=== PATIENT | female | born 1990 | race American Indian/Alaskan Native ===

== ENCOUNTER 2016-11-16 19:28 | Emergency (ER) | payer OTHER ==
[2016-11-16 19:59] LABS: BASOPHIL 0.3 % (0-2.0); EOSINOPHIL 0.3 % (0-4.5); MCH 22.7 pg (25.7-33.7); MCHC 31.5 g/dl (32.0-36.0); MEAN CELL VOLUME 72.1 fl (80-96); MEAN PLT VOLUME 7.2 fl (7.5-11.1); NEUTROPHILS 72.7 % (42.8-82.8); PLATELET COUNT 323 K/MM3 (134-434); RDW 18.5 % (11.6-15.6); WHITE BLOOD COUNT 11.5 K/mm3 (4.0-10.0)
[2016-11-16 20:10] VITALS: BP 116/69; PULSE 81; TEMP 97.6; BMI 23.3
[2016-11-16 20:26] LABS: ALBUMIN 3.7 g/dl (3.4-5.0); ALK PHOS 86 U/L (45-117); ANION GAP 10 (8-16); BILIRUBIN,TOTAL 0.2 mg/dL (0.2-1.0); CALCIUM 9.6 mg/dL (8.5-10.1); CO2 24 mmol/L (21-32); CREATININE 0.5 mg/dL (0.55-1.02); GLUCOSE,RANDOM 112 mg/dL (74-106); SGOT/AST 27 U/L (15-37); SGPT/ALT 51 U/L (12-78); TOT PROT 7.6 g/dl (6.4-8.2)
[2016-11-16 20:32] LABS: URINE APPEARANCE CLEAR; URINE BILIRUBIN NEGATIVE (NEGATIVE); URINE COLOR YELLOW; URINE GLUCOSE (UA) NEGATIVE (NEGATIVE); URINE KETONE NEGATIVE (NEGATIVE); URINE LEUK ESTERASE NEGATIVE (NEGATIVE); URINE NITRITE NEGATIVE (NEGATIVE); URINE PROTEIN NEGATIVE (NEGATIVE); URINE UROBILINOGEN NEGATIVE E.U./dl (0.2-1.0)
[2016-11-16 20:33] LABS: URINE BLOOD 3+ (NEGATIVE)
--- NOTE | 2016-11-16 20:38 | PDOC ---
History of Present Illness - General History Source: Patient Exam Limitations: No Limitations - History of Present Illness Initial Comments: 11/16/16 20:39 The patient is a 26 year old female, 11 weeks () who presents to the ED with complaints of vaginal bleeding since earlier today. The patient a sudden onset of vaginal bleeding when she was cooking in the kitchen. The patient reports she went through 1 pad, and states her vaginal bleeding is heavy. The patient denies dysuria. The patient denies fevers or chills. Denies abdominal pain, nausea, vomiting, or diarrhea. Denies any other symptoms. FINANCE ASSISTANT: Dr. Garcia <Brando Reyna - Last Filed: 11/16/16 22:31> <Charity Thao - Last Filed: 11/16/16 23:09> - General Chief Complaint: Vaginal Bleeding Stated Complaint: VAGINAL BLEEDING 11WKS Time Seen by Provider: 11/16/16 19:37 Past History <Brando Reyna - Last Filed: 11/16/16 22:31> - Reproductive History Is Patient Now?: Yes (#): 1 Para: 0 Cervical CA: No Dysfunctional Uterine Bleeding: No Ectopic : No Endometrial CA: No Polycystic Ovaries: No Therapeutic (s) & number: No Tubal Ligation: No Spontaneous : 0 - Immunization History Immunization Up to Date: Yes - Psycho/Social/Smoking Cessation Hx Suicidal Ideation: No Smoking History: Never smoked Have you smoked in the past 12 months: No Information on smoking cessation initiated: No Hx Alcohol Use: No Drug/Substance Use Hx: No Substance Use Type: None <Charity Thao - Last Filed: 11/16/16 23:09> - Past Medical History Allergies/Adverse Reactions: Allergies Allergy/AdvReac Type Severity Reaction Status Date / Time No Known Allergies Allergy Verified 11/16/16 19:38 Home Medications: Ambulatory Orders Vits #93/Iron Fum/FA [ Formula Tablet] 1 each PO DAILY Review of Systems - Review of Systems Able to Perform ROS?: Yes Comments:: 11/16/16 20:39 CONSTITUTIONAL: Absent: fever, chills, diaphoresis, generalized weakness, malaise, loss of appetite HEENT: Absent: rhinorrhea, nasal congestion, throat pain, throat swelling, difficulty swallowing, mouth swelling, ear pain, eye pain, visual Changes CARDIOVASCULAR: Absent: chest pain, syncope, palpitations, irregular heart rate, lightheadedness , peripheral edema RESPIRATORY: Absent: cough, shortness of breath, dyspnea with exertion, orthopnea, wheezing, stridor, hemoptysis GASTROINTESTINAL: Absent: abdominal pain, abdominal distension, nausea, vomiting, diarrhea, constipation, melena, hematochezia GENITOURINARY: + vaginal bleeding Absent: dysuria, frequency, urgency, hesitancy, flank pain, genital pain MUSCULOSKELETAL: Absent: myalgia, arthralgia, joint swelling SKIN: Absent: rash, itching, pallor HEMATOLOGIC/IMMUNOLOGIC: Absent: easy bleeding, easy bruising, lymphadenopathy, frequent infections ENDOCRINE: Absent: unexplained weight gain, unexplained weight loss, heat intolerance, cold intolerance NEUROLOGIC: Absent: headache, focal weakness or paresthesias, dizziness, unsteady gait, seizure, mental status changes, bladder or bowel incontinence PSYCHIATRIC: Absent: anxiety, depression, suicidal or homicidal ideation, hallucinations. All Other Systems: Reviewed and Negative <Brando Reyna - Last Filed: 11/16/16 22:31> *Physical Exam - Vital Signs Last Vital Signs Temp Pulse Resp BP Pulse Ox 97.6 F 81 18 116/69 99 11/16/16 19:34 11/16/16 19:34 11/16/16 19:34 11/16/16 19:34 11/16/16 19:34 - Physical Exam Comments: 11/16/16 20:39 GENERAL: Well developed, well nourished. Awake and alert. No acute distress. HEENT: Normocephalic, atraumatic. PERRLA, EOMI. No conjunctival pallor. Sclera are non- icteric. Moist mucous membranes. Oropharynx is clear. NECK: Supple. Full ROM. No JVD. Carotid pulses 2+ and symmetric, without bruits. No thyromegaly. NCo lymphadenopathy. CARDIOVASCULAR: Regular rate and rhythm. No murmurs, rubs, or gallops. Distal pulses are 2+ and symmetric. PULMONARY: No evidence of respiratory distress. Lungs clear to auscultation bilaterally. No wheezing, rales or rhonchi. ABDOMINAL: Soft. Non-tender. Non-distended. No rebound or guarding. No organomegaly. Normoactive bowel sounds. VAGINAL: + Os is closed MUSCULOSKELETAL Normal range of motion at all joints. No bony deformities or tenderness. No CVA tenderness. EXTREMITIES: No cyanosis. No clubbing. No edema. No calf tenderness. SKIN: Warm and dry. Normal capillary refill. No rashes. No jaundice. NEUROLOGICAL: Alert, awake, appropriate. Cranial nerves 2-12 intact. No deficits to light touch and temperature in face, upper extremities and lower extremities. No motor deficits in the in face, upper extremities and lower extremities. Normoreflexic in the upper and lower extremities. Normal speech. Toes are down- going bilaterally. Gait is normal without ataxia. PSYCHIATRIC: Cooperative. Good eye contact. Appropriate mood and affect. <Brando Reyna - Last Filed: 11/16/16 22:31> - Vital Signs Last Vital Signs Temp Pulse Resp BP Pulse Ox 97.6 F 81 18 116/69 99 11/16/16 19:34 11/16/16 19:34 11/16/16 19:34 11/16/16 19:34 11/16/16 19:34 <Charity Thao - Last Filed: 11/16/16 23:09> ED Treatment Course - LABORATORY CBC & Chemistry Diagram: 11/16/16 19:45 11/16/16 19:45 - ADDITIONAL ORDERS Additional order review: Laboratory Results 11/16/16 11/16/16 20:20 19:45 Sodium 136 Potassium 3.9 Chloride 102 Carbon Dioxide 24 Anion Gap 10 BUN 7 Creatinine 0.5 L Creat Clearance w eGFR > 60 Random Glucose 112 H Calcium 9.6 Total Bilirubin 0.2 AST 27 ALT 51 Alkaline Phosphatase 86 Total Protein 7.6 Albumin 3.7 Urine Color Yellow Urine Appearance Clear Urine pH 5.0 Urine Protein Negative Urine Glucose (UA) Negative Urine Ketones Negative Urine Blood 3+ H Urine Nitrite Negative Urine Bilirubin Negative Urine Urobilinogen Negative Ur Leukocyte Esterase Negative 11/16/16 19:45 RBC 4.94 MCV 72.1 L MCHC 31.5 L RDW 18.5 H MPV 7.2 L Neutrophils % 72.7 Lymphocytes % 21.9 Monocytes % 4.8 Eosinophils % 0.3 Basophils % 0.3 <Brando Reyna - Last Filed: 11/16/16 22:31> - LABORATORY CBC & Chemistry Diagram: 11/16/16 19:45 11/16/16 19:45 - ADDITIONAL ORDERS Additional order review: Laboratory Results 11/16/16 11/16/16 20:20 19:45 Sodium 136 Potassium 3.9 Chloride 102 Carbon Dioxide 24 Anion Gap 10 BUN 7 Creatinine 0.5 L Creat Clearance w eGFR > 60 Random Glucose 112 H Calcium 9.6 Total Bilirubin 0.2 AST 27 ALT 51 Alkaline Phosphatase 86 Total Protein 7.6 Albumin 3.7 Urine Color Yellow Urine Appearance Clear Urine pH 5.0 Urine Protein Negative Urine Glucose (UA) Negative Urine Ketones Negative Urine Blood 3+ H Urine Nitrite Negative Urine Bilirubin Negative Urine Urobilinogen Negative Ur Leukocyte Esterase Negative 11/16/16 19:45 RBC 4.94 MCV 72.1 L MCHC 31.5 L RDW 18.5 H MPV 7.2 L Neutrophils % 72.7 Lymphocytes % 21.9 Monocytes % 4.8 Eosinophils % 0.3 Basophils % 0.3 - RADIOLOGY Radiology Studies Ordered: Category Date Time Status <14WKS US [US] Stat Ultrasound 11/16/16 19:37 Ordered <Charity Thao - Last Filed: 11/16/16 23:09> Medical Decision Making - Medical Decision Making 11/16/16 23:08 Pt comes with vag bleed in ; OS closed on exam. SOno is normal: Patient Name: Natasha Pires THIS IS A PRELIMINARY REPORT FROM [facility] IMAGES: 59 EXAM DATE AND TIME: 2016-11-16 20:44:11.0 EXAM: OB Ultrasound 14 wks single fetus AND DUPLEX SCAN PELVIS, COMPLETE Single live intrauterine Gestational age 10 weeks 4 days heart rate 129-137 bpm 1 cm corpus luteum left ovary No ovarian torsion bilaterally. Color flow with appropriate arterial waveforms. THIS DOCUMENT HAS BEEN ELECTRONICALLY SIGNED Pt has Apositive blood. SHe will be asked to follow with Dr. Heredia. Pt has normal Urinalysis. No infection <Charity Thao - Last Filed: 11/16/16 23:09> *DC/Admit/Observation/Transfer - Attestations Scribe Attestion: 11/16/16 20:39 Documentation prepared by Brando Reyna, acting as medical laboratory technologist for Charity Thao MD <Brando Reyna - Last Filed: 11/16/16 22:31> - Discharge Dispostion Admit: No <Charity Thao - Last Filed: 11/16/16 23:09> Diagnosis at time of Disposition: Threatened - Discharge Dispostion Disposition: HOME Condition at time of disposition: Stable - Patient Instructions Printed Discharge Instructions: DI for Threatened
[2016-11-16 20:43] LABS: URINE MUCUS RARE; URINE RBC 224 /hpf (0-3); URINE WBC 12 /hpf (3-5)
== END 2016-11-16 23:33 | disposition home or self-care (01) ==
LOC: JER 19:28
DX: O20.0 Threatened abortion (principal); O34.81 Maternal care for other abnormalities of pelvic organs, first trimester; N83.12 Corpus luteum cyst of left ovary; Z3A.10 10 weeks gestation of pregnancy
CPT/HCPCS: 36415; 76801-TC; 80053; 81003; 81015; 84702; 85025; 86850; 86900; 86901; 99282-25

== ENCOUNTER 2017-05-07 07:00 | Inpatient (IN) | payer OTHER ==
[2017-05-07] MEDS ORDERED: PROMETHAZINE HCL 25 MG/1 ML VIAL IVPUSH ONE (07:32)
[2017-05-07] MEDS ORDERED: BUTORPHANOL TARTRATE 1 MG/ML VIAL IVPB ONE (07:32)
[2017-05-07] MEDS ORDERED: AMPICILLIN - 2 GM in SODIUM CHLORIDE 100 ML IVPB ONE (07:34)
[2017-05-07] MEDS ORDERED: ELECTROLYTE-148 SOLN 1,000 ML IV SCH (07:45)
--- NOTE | 2017-05-07 07:46 | HP ---
Past Medical History - Admission History of Present Illness: 26 y/o with SIUP at 35.1 weeks here for complaints of ROM at 6:10am. States she started noticing a large amount of fluid/watery discharge. Denies any pain/contractions. +FM. A1GDM, and 1st trimester bleeding (which resolved ) otherwise uncomplicated . Limitations to Obtaining History: No Limitations - Past Medical History Cardiovascular: No: AFIB, HTN Pulmonary: No: Asthma, COPD Gastrointestinal: No: GERD, Irritable Bowel Disease Renal/: No: UTI ...: 1 ...Para: 0 ...Term: 0 ...: 0 ...Spon : 0 ...Induced : 0 ...Multiple Gestation: 0 ... Weeks Gestation by Dates: 35.1 Heme/Onc: No: Anemia Infectious Disease: No: HIV, STD's Psych: No: Bipolar, Depression Endocrine: No: Diabetes Mellitus, Hyperthyroidism, Hypothyroidism - Past Surgical History Past Surgical History: Yes: None Hx Myomectomy: No Hx Transabdominal Cerclage: No - Smoking History Smoking history: Never smoked Have you smoked in the past 12 months: No - Alcohol/Substance Use Hx Alcohol Use: No - Social History Usual Living Arrangement: Yes: With Spouse History of Recent Travel: No Home Medications - Allergies Allergies/Adverse Reactions: Allergies Allergy/AdvReac Type Severity Reaction Status Date / Time No Known Allergies Allergy Verified 11/16/16 19:38 - Home Medications Home Medications: Ambulatory Orders Vits #93/Iron Fum/FA [ Formula Tablet] 1 each PO DAILY Review of Systems - Review of Systems Constitutional: reports: No Symptoms Eyes: reports: No Symptoms HENT: reports: No Symptoms Neck: reports: No Symptoms Cardiovascular: reports: No Symptoms Respiratory: reports: No Symptoms Gastrointestinal: reports: No Symptoms Genitourinary: reports: No Symptoms Breasts: reports: No Symptoms Reported Musculoskeletal: reports: No Symptoms Integumentary: reports: No Symptoms Neurological: reports: No Symptoms Endocrine: reports: No Symptoms Hematology/Lymphatic: reports: No Symptoms Psychiatric: reports: No Symptoms Physical Exam - Maternity Constitutional: Yes: Well Nourished, No Distress, Calm Eyes: Yes: WNL, Conjunctiva Clear HENT: Yes: Atraumatic, Normocephalic Neck: Yes: WNL Cardiovascular: Yes: WNL Lungs: Clear to auscultation Breast(s): Yes: WNL - Abdominal Exam/OB Fundal Height: 34 Number of Fetuses: Single Presentation: Vertex Contractions: Yes Regularity: Regular Intensity: Mild Heart Rate (range): 145 Category: I Decelerations: None - Vaginal Exam/OB Vaginal Bleediing: No Dilatation (cm): 2.5 Effacement (%): 80 Nitrazine Test: Positive Amniotic Fluid: Yes: Clear Presentation: Vertex/Position Station: -3 - Physical Exam Psychiatric: Yes: Alert, Oriented Hemorrhage Risk Assessment - Risk Factors Medium Risk Factors: Yes: None High Risk Factors: Yes: None Risk Score: 1 Risk Level: Medium Risk Problem List - Problems (1) Prior PROM, antepartum Code(s): O09.299 - SUPRVSN OF PREG W POOR REPRODCTV OR OBSTET HISTORY, UNSP TRI Assessment/Plan 26 y/o with SIUP at 35 weeks, PPROM - AFVSS - A1GDm - PPROM, to start induction with oxytocin - gbs unknown, start ampicillin
[2017-05-07 08:17] VITALS: BMI 26.3
[2017-05-07 08:28] LABS: BASOPHIL 0.3 % (0-2.0); EOSINOPHIL 0.2 % (0-4.5); MCH 27.7 pg (25.7-33.7); MCHC 33.6 g/dl (32.0-36.0); MEAN CELL VOLUME 82.4 fl (80-96); MEAN PLT VOLUME 7.8 fl (7.5-11.1); NEUTROPHILS 76.5 % (42.8-82.8); PLATELET COUNT 258 K/MM3 (134-434); RDW 13.8 % (11.6-15.6); WHITE BLOOD COUNT 12.5 K/mm3 (4.0-10.0)
[2017-05-07 08:41] LABS: INR 0.95 (0.82-1.09); PROTHROMBIN TIME (PATIENT) 10.7 SEC (9.98-11.88)
[2017-05-07] MEDS ORDERED: OXYTOCIN 15 UNITS/ LR 250 ML 15 UNIT/250 ML INFUS.BAG IVPB SCH (09:15)
[2017-05-07 09:26] LABS: ANION GAP 13 (8-16); CALCIUM 8.8 mg/dL (8.5-10.1); CO2 21 mmol/L (21-32); CREATININE 0.4 mg/dL (0.55-1.02); GLUCOSE,RANDOM 108 mg/dL (74-106)
[2017-05-07 11:29] LABS: HIV 1 & 2 AB NEGATIVE; HIV 1 AGp24 NEGATIVE
[2017-05-07] MEDS ORDERED: WITCH HAZEL 50% (TUCKS) 40 PAD/JAR PAD TP PRN (13:47)
[2017-05-07] MEDS ORDERED: ACETAMINOPHEN 325 MG TABLET (FP) PO PRN (13:47)
[2017-05-07] MEDS ORDERED: BISACODYL 10 MG SUPP.RECT RC PRN (13:47)
[2017-05-07] MEDS ORDERED: IBUPROFEN 600 MG TABLET (FP) PO PRN (13:47)
[2017-05-07] MEDS ORDERED: METHYLERGONOVINE MALEATE 0.2 MG/1 ML AMP IM PRN (13:47)
[2017-05-07] MEDS ORDERED: BENZOCAINE 28 GM HEMORRHOIDAL OINTMENT TP PRN (13:47)
[2017-05-07] MEDS ORDERED: BENZOCAINE 20% 57 GM BOTTLE TP PRN (13:47)
--- NOTE | 2017-05-07 13:47 | PN ---
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 Name: Mabel Adkins Infant Gender: Female Position: Left, OA - 1 Minute Total Score: 9 5 Minutes Total Score: 9 - [place] Feeding Plan Initial Plan: Elected not to breastfeed exclusively throughout hospitalization Remarks - Remarks Remarks: Uncomplicated delivery across intact perineum from MARLENE position double nuchal cord noted anterior shoulder (right) delivered with ease along with remainder of infant assessed by neonatology who was present for entire delivery APGARS 9/9 placenta delivered in tact and spontaneously - 3VC sponge count correct mom stable baby to NICU 2/2 prematurity oxytocin running after delivery
[2017-05-07] MEDS ORDERED: OXYTOCIN 20 UNITS in 0.9% NS 20 UNIT/1,000 ML INFUS.BAG IV SCH (14:00)
[2017-05-07] MEDS: AMPICILLIN - 1 GM in SODIUM CHLORIDE 100 ML IVPB SCH ×2 (14:27→17:45)
[2017-05-07] MEDS ORDERED: TUBERCULIN PPD 5 TU/0.1ML SYRINGE (IN PATIENT USE ONLY) ID ONE (15:05)
[2017-05-07] MEDS: FERROUS SO4 325 MG TABLET (FP) PO SCH (18:12)
[2017-05-08 07:55] LABS: BASOPHIL 0.2 % (0-2.0); EOSINOPHIL 0.5 % (0-4.5); MCH 27.3 pg (25.7-33.7); MCHC 32.7 g/dl (32.0-36.0); MEAN CELL VOLUME 83.6 fl (80-96); MEAN PLT VOLUME 7.7 fl (7.5-11.1); NEUTROPHILS 78.1 % (42.8-82.8); PLATELET COUNT 216 K/MM3 (134-434); RDW 13.9 % (11.6-15.6); WHITE BLOOD COUNT 19.2 K/mm3 (4.0-10.0)
[2017-05-08] MEDS: FERROUS SO4 325 MG TABLET (FP) PO SCH ×3 (08:32→16:56)
--- NOTE | 2017-05-08 08:57 | PN ---
Post Progress Note - Subjective Subjective: Pt seen/evaluated and doing well. Pain controlled. Tolerating diet, ambulating , voiding, passing flatus. VB moderate but decreasing. No other complaints. Type of Delivery: Vital Signs: Vital Signs Temperature 99 F 05/08/17 08:14 Pulse Rate 79 05/08/17 08:14 Respiratory Rate 20 05/08/17 08:14 Blood Pressure 105/62 05/08/17 08:14 O2 Sat by Pulse Oximetry (%) 100 05/07/17 14:30 Uterus: Yes: Fundus Firm Abdomen/GI: Yes: Abdomen soft, Passing flatus, Tolerating PO. No: Abdominal Distention, Tender Lochia: Yes: Rubra Lochia, amount: Small Extremities: Yes: Calves non-tender. No: Edema Perineum: Yes: Intact Activity: Ambulating - Labs Labs: CBC WBC 19.2 K/mm3 (4.0-10.0) H D 05/08/17 06:30 RBC 4.08 M/mm3 (3.60-5.2) 05/08/17 06:30 Hgb 11.2 GM/dL (10.7-15.3) D 05/08/17 06:30 Hct 34.1 % (32.4-45.2) 05/08/17 06:30 MCV 83.6 fl (80-96) 05/08/17 06:30 MCH 27.3 pg (25.7-33.7) 05/08/17 06:30 MCHC 32.7 g/dl (32.0-36.0) 05/08/17 06:30 RDW 13.9 % (11.6-15.6) 05/08/17 06:30 Plt Count 216 K/MM3 (134-434) 05/08/17 06:30 MPV 7.7 fl (7.5-11.1) 05/08/17 06:30 Neutrophils % 78.1 % (42.8-82.8) 05/08/17 06:30 Lymphocytes % 16.6 % (8-40) 05/08/17 06:30 Monocytes % 4.6 % (3.8-10.2) 05/08/17 06:30 Eosinophils % 0.5 % (0-4.5) D 05/08/17 06:30 Basophils % 0.2 % (0-2.0) 05/08/17 06:30 Problem List - Problems (1) Vaginal delivery Code(s): O80 - ENCOUNTER FOR FULL-TERM UNCOMPLICATED DELIVERY Assessment/Plan 26 y/o PPD#1 s/p normal - AFVSS - Hgb 11.2 - regular diet - encourage ambulation - routine care
[2017-05-08] MEDS: PRENATAL VITAMINS W/ FOLIC ACID TABLET (FP) PO SCH (09:45)
[2017-05-08] MEDS ORDERED: FLU VACC QS2017-18 36MOS UP/PF 60 MCG/0.5 ML SYRINGE IM ONE (14:00)
[2017-05-08] MEDS ORDERED: DIPHTH,PERTUSS(ACELL),TET 0.5 ML DISP.SYRIN IM ONE (14:00)
[2017-05-08] MEDS ORDERED: SENNOSIDES/DOCUSATE COMBO (SENNA PLUS) TABLET (UD) PO PRN (22:00)
[2017-05-09] MEDS: FERROUS SO4 325 MG TABLET (FP) PO SCH ×2 (07:38→12:07)
[2017-05-09 08:32] VITALS: BP 121/77; PULSE 85; TEMP 99
[2017-05-09] MEDS: PRENATAL VITAMINS W/ FOLIC ACID TABLET (FP) PO SCH (09:24)
--- NOTE | 2017-05-09 10:41 | DS ---
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 Vital Signs: Vital Signs Temperature 99 F 05/09/17 08:31 Pulse Rate 85 05/09/17 08:31 Respiratory Rate 20 05/09/17 08:31 Blood Pressure 121/77 05/09/17 08:31 O2 Sat by Pulse Oximetry (%) 100 05/07/17 14:30 Constitutional: Yes: Well Nourished Eyes: Yes: Conjunctiva Clear HENT: Yes: Atraumatic Neck: Yes: Supple Cardiovascular: Yes: Regular Rate and Rhythm Respiratory: Yes: Regular, CTA Bilaterally Gastrointestinal: Yes: Normal Bowel Sounds External Genitalia: Yes: Normal Vaginal Exam: Yes: Normal Cervix: Yes: Normal Uterus: Yes: Firm ....Post : Yes: Uterus firm, Moderate lochia serosa Breast(s): Yes: WNL Neurological: Yes: Alert, Oriented ...Motor Strength: WNL Psychiatric: Yes: Alert, Oriented Labs: CBC, BMP 05/08/17 06:30 05/07/17 07:57 Delivery - Delivery Vaginal Delivery: No Problems Type of Anesthesia: None Episiotomy/Laceration: None EBL (cc): 300 Delivery, Single - Stages of Labor Date 1st Stage Initiatied: 05/07/17 Time 1st Stage Initiated: 06:10 Date 2nd Stage Initiated: 05/07/17 Time 2nd Stage Initiated: 13:15 Date of Delivery: 05/07/17 Time of Delivery: 13:29 Time Placenta Delivered: 13:33 Placenta: Yes: Spontaneous - Condition of Infant 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 call for appointment. Referrals: Marlys Baldwin DO [Staff Physician] - Disposition: HOME - Home Medications Comprehensive Discharge Medication List: Ambulatory Orders Vits #93/Iron Fum/FA [ Formula Tablet] 1 each PO DAILY
== END 2017-05-09 18:20 | disposition home or self-care (01) | DRG 775 ==
LOC: JLDR 07:00 → J3W 15:11
PROVIDERS: ADMIT Obstetrics & Gynecology; ATTEND Obstetrics & Gynecology
PROC: 10E0XZZ Delivery of Products of Conception, External Approach (ICD-10-PCS; principal; 2017-05-07)
DX: O42.913 Preterm premature rupture of membranes, unspecified as to length of time between rupture and onset of labor, third trimester (principal); O09.293 Supervision of pregnancy with other poor reproductive or obstetric history, third trimester; Z3A.35 35 weeks gestation of pregnancy; Z37.0 Single live birth
CPT/HCPCS: 36415; 59409; 80048; 85025; 85610; 85730; 86593; 86850; 86900; 86901; 87389; 90686; 90715